=== PATIENT | male | born 2000 | race Caucasian/White ===

== ENCOUNTER 2019-06-06 19:33 | Emergency (ER) | payer OTHER ==
[2019-06-06 20:35] VITALS: BP 132/82
[2019-06-06] MEDS ORDERED: Lidocaine 1% MPF ** 5 ML VIAL INJ ONE (22:20)
[2019-06-06] MEDS ORDERED: DOXYcycline CAP(*) 100 MG PO ONE ×2 (22:57→22:58)
--- NOTE | 2019-06-06 23:00 | UC ---
Skin Complaint HPI - HPI Summary HPI Summary: 18-year-old male comes in with a chief complaint of an infection in his left earlobe.'s been going on for quite some time it's gotten bigger recently. The past he's had one other episode which was able to drain on its own however area is not been able to drain this one. No fevers no chills. Feels well otherwise. The earlobe is tender to palpation. - History of Current Complaint Chief Complaint: UCSkin Time Seen by Provider: 06/06/19 22:17 Stated Complaint: EAR LOBE IRRITATION Pain Intensity: 6 - Allergy/Home Medications Allergies/Adverse Reactions: Allergies Allergy/AdvReac Type Severity Reaction Status Date / Time No Known Allergies Allergy Verified 06/06/19 20:35 Home Medications: Home Medications Methylphenidate ER [Concerta] 27 mg PO DAILY 06/06/19 [History Confirmed ] Sertraline* [Zoloft*] 75 mg PO DAILY 06/06/19 [History Confirmed 06/06/19] guanFACINE TAB* [Tenex TAB*] 4 mg PO DAILY 06/06/19 [History Confirmed 06/06/19] PMH/Surg Hx/FS Hx/Imm Hx Previously Healthy: Yes - Surgical History Surgical History: None - Family History Known Family History: Positive: Non-Contributory - Social History Alcohol Use: None Substance Use Type: None Smoking Status (MU): Never Smoked Tobacco Review of Systems All Other Systems Reviewed And Are Negative: Yes Constitutional: Positive: Negative Skin: Positive: Other - SEE HPI Eyes: Positive: Negative ENT: Positive: Negative Respiratory: Positive: Negative Cardiovascular: Positive: Negative Gastrointestinal: Positive: Negative Motor: Positive: Negative Neurovascular: Positive: Negative Musculoskeletal: Positive: Negative Neurological: Positive: Negative Psychological: Positive: Negative Is Patient Immunocompromised?: No Physical Exam Triage Information Reviewed: Yes Appearance: Well-Appearing, No Pain Distress, Well-Nourished Vital Signs: Initial Vital Signs Temp 98.4 F 06/06/19 20:29 Pulse 73 06/06/19 20:29 Resp 16 06/06/19 20:29 BP 132/82 06/06/19 20:29 Pulse Ox 100 06/06/19 20:29 Vital Signs Reviewed: Yes Eye Exam: Normal Eyes: Positive: Conjunctiva Clear ENT: Positive: Other - The left earlobe has a 1.5 cm diameter fluctuant area with erythema.. Negative: Nasal drainage Neck: Positive: Supple Respiratory: Positive: No respiratory distress Musculoskeletal: Positive: Strength Intact, ROM Intact Neurological: Positive: Alert, Muscle Tone Normal Psychological: Positive: Age Appropriate Behavior Skin: Positive: Other - Left ear lobe swelling with erythema. Procedures - Incision and Drainage Left Ear Site: left pinna earlobe Anesthesia: Local, Lidocaine - 1% Instrument(s): Scalpel - pus drained from the abscess and a culture was obtained. No packing. Course/Dx - Course Course Of Treatment: Pus to drain from the abscess of the left earlobe. I did obtain a culture. Starting the patient on doxycycline 100 mg by mouth twice a day. Follow-up with his primary care doctor get reevaluated sooner if worse or any questions or concerns. - Diagnoses Provider Diagnosis: Abscess of left pinna Discharge ED - Sign-Out/Discharge Documenting (check all that apply): Patient Departure All imaging exams completed and their final reports reviewed: No Studies - Discharge Plan Condition: Stable Disposition: HOME Prescriptions: DOXYcycline CAP(*) [DOXYcycline 100MG CAP(*)] 100 mg PO BID #[id number] cap Patient Education Materials: Abscess (ED) Referrals: [facility] [Provider Group] Additional Instructions: FOLLOW UP WITH YOUR DOCTOR IF NOT COMPLETELY IMPROVED. GET RECHECKED SOONER IF YOUR CONDITION WORSENS OR ANY QUESTIONS OR CONCERNS. - Billing Disposition and Condition Condition: STABLE Disposition: Home
== END 2019-06-06 23:00 | disposition home or self-care (01) ==
LOC: UCEAST 19:33
DX: H60.02 Abscess of left external ear (principal)
CPT/HCPCS: 10060; 87070; 87205; 99202; A9270-GY; G0463